=== PATIENT | male | born 1945 | race Caucasian/White ===

== ENCOUNTER 2018-06-08 23:40 | Emergency (ER) | payer MEDICARE ==
[~2018-06-08] VITALS: Ht 167.6 cm; Wt 87.5 kg
[2018-06-08 23:41] VITALS: BP 142/73
[2018-06-09] MEDS ORDERED: LIDOCAINE-MPF 1%, 2ML ONE (00:22)
[2018-06-09] MEDS ORDERED: SODIUM CHLORIDE FLUSH 10ML SYR IVF ONE (00:30)
[2018-06-09] MEDS ORDERED: DIPHTHERIA-TETANUS ADULT 0.5ML IM-VACC ONE (00:30)
[2018-06-09] MEDS ORDERED: LIDOCAINE-MPF 1%, 2ML INFIL ONE (00:30)
[2018-06-09] MEDS ORDERED: BACITRACIN ZINC OINT 500U/GM, 0.9 GM ONE (01:54)
== END 2018-06-09 02:14 | disposition home or self-care (01) ==
LOC: ED 23:59
DX: S61.315A Laceration without foreign body of left ring finger with damage to nail, initial encounter (principal); I10 Essential (primary) hypertension; W31.9XXA Contact with unspecified machinery, initial encounter; Y93.89 Activity, other specified; Y92.009 Unspecified place in unspecified non-institutional (private) residence as the place of occurrence of the external cause; Y99.8 Other external cause status
CPT/HCPCS: 11760; 99284

== ENCOUNTER 2018-06-11 08:31 | Emergency (ER) | payer MEDICARE ==
[~2018-06-11] VITALS: Ht 167.6 cm; Wt 79.5 kg
[2018-06-11 09:03] VITALS: BP 132/51
== END 2018-06-11 09:56 | disposition home or self-care (01) ==
LOC: ED 08:45
DX: S61.315D Laceration without foreign body of left ring finger with damage to nail, subsequent encounter (principal); I10 Essential (primary) hypertension; X58.XXXD Exposure to other specified factors, subsequent encounter
CPT/HCPCS: 99281

== ENCOUNTER 2018-06-19 07:31 | Emergency (ER) | payer MEDICARE ==
[~2018-06-19] VITALS: Ht 165.1 cm; Wt 88.0 kg
[2018-06-19 07:34] VITALS: BP 149/77
== END 2018-06-19 08:15 | disposition home or self-care (01) ==
LOC: ED 08:00
DX: S61.215D Laceration without foreign body of left ring finger without damage to nail, subsequent encounter (principal); I10 Essential (primary) hypertension; X58.XXXD Exposure to other specified factors, subsequent encounter
CPT/HCPCS: 99283